=== PATIENT | female | born 1970 | race Caucasian/White ===

== ENCOUNTER → 2021-10-27 | Outpatient (CLI) | payer BC ==
--- NOTE | 2021-10-27 11:24 | Diagnostic Imaging Report ---
INDICATION: Routine screening. COMPARISON: No prior mammograms are available for comparison. This is a baseline study. TECHNIQUE: 2D and 3D bilateral screening mammography was performed with CAD. FINDINGS: Both breasts are heterogeneously dense, limiting the sensitivity of mammography. There is a circumscribed density in the upper and slightly outer aspect of the right breast at mid depth. Additional views of this are recommended. There is a cluster of microcalcifications in the inner aspect of the right breast at mid depth. Additional views are recommended. There are also some calcifications in the posterior slightly lower inner left breast for which additional views are recommended. An intraparenchymal lymph node in the upper posterior left breast is noted. The axillae are unremarkable. IMPRESSION: 1. Bilateral breast calcifications. Additional views are recommended. 2. Circumscribed nodule in the upper outer right breast. Additional views and ultrasound are recommended. ACR BI-RADS Category 0: Incomplete. (Needs additional imaging evaluation). Result letter will be mailed to the patient. Note: At least 10% of breast cancer is not imaged by mammography. Dictated by: Dictated on workstation # [id number]
== END ==
LOC: RAD 07:57
PROVIDERS: ATTEND Nurse Practitioner Family
DX: Z12.31 Encounter for screening mammogram for malignant neoplasm of breast (principal); N63.11 Unspecified lump in the right breast, upper outer quadrant; R92.1 Mammographic calcification found on diagnostic imaging of breast
CPT/HCPCS: 77063; 77067

== ENCOUNTER → 2021-11-03 | Outpatient (CLI) | payer BC ==
--- NOTE | 2021-11-03 09:58 | Diagnostic Imaging Report ---
INDICATION: Right breast density as well as bilateral breast calcifications. Patient presents for additional views. COMPARISON: Correlation is made with the screening mammogram from 10/27/2021. TECHNIQUE: 2D and 3D bilateral diagnostic mammography was performed with CAD. This included spot compression views of the upper outer right breast as well as CC and ML magnification views of the bilateral breast calcifications. Conventional 90 degree lateral views were obtained bilaterally as well. FINDINGS: The additional views show a persistent somewhat circumscribed density in the upper outer right breast approximately 4 cm from the nipple. This may represent a cyst. Further evaluation with ultrasound is recommended. Magnifications views of the right breast do show a cluster of indeterminate microcalcifications in the medial right breast at mid depth. These are indeterminate and tissue sampling would be recommended. No associated soft tissue mass is seen. Magnification views of the left breast calcifications demonstrate the calcifications to be loosely clustered. These are primarily punctate without evidence of pleomorphism. These appear to be benign. IMPRESSION: 1. Circumscribed density in the upper outer right breast at mid depth. Further evaluation with ultrasound is recommended and will be performed today. 2. Benign appearing left breast calcifications. 3. Clustered indeterminate microcalcifications in the inner right breast. Tissue sampling is recommended. These would be amenable to a stereotactic biopsy approach. ACR BI-RADS Category 0: Incomplete. (Needs additional imaging evaluation). Result letter will be mailed to the patient. Note: At least 10% of breast cancer is not imaged by mammography. Dictated by: Dictated on workstation # [id number]
--- NOTE | 2021-11-03 11:43 | Diagnostic Imaging Report ---
INDICATION: Right breast density. COMPARISON: Correlation is made with the diagnostic mammogram from earlier this same day. TECHNIQUE: Sonographic interrogation of the upper outer right breast was performed. FINDINGS: There is a fairly well-circumscribed macrolobulated solid mass at the 10 o'clock location of the right breast 2-3 cm from the nipple measuring 1.9 x 1.0 x 1.8 cm. No internal vascularity is present. There appears to be some mild posterior acoustic enhancement. The features are most suggestive of a fibroadenoma. IMPRESSION: 1. Cluster of microcalcifications noted on diagnostic and screening mammography in the right breast. Tissue sampling of the calcifications is recommended. These would be amenable to a stereotactic biopsy approach. 2. Macrolobulated solid nodule at the 10 o'clock location of the right breast with features most suggestive of a fibroadenoma. A followup right breast ultrasound in 6 months is recommended to show continued stability. ACR BI-RADS Category 4: Suspicious abnormality. Dictated by: Dictated on workstation # [id number]
== END ==
LOC: RAD 09:01
PROVIDERS: ATTEND Nurse Practitioner Family
DX: N63.11 Unspecified lump in the right breast, upper outer quadrant (principal); R92.0 Mammographic microcalcification found on diagnostic imaging of breast
CPT/HCPCS: 76642; 77066; G0279; 77062

== ENCOUNTER → 2021-11-12 | Outpatient (CLI) | payer BC ==
[~2021-11-12] VITALS: Ht 165.1 cm; Wt 81.8 kg
[~2021-11-12] MED LIST: LIDOCAINE 1% INJ 20 ML VIAL INJ ONE
--- NOTE | 2021-11-12 11:23 | Diagnostic Imaging Report ---
INDICATION: Right breast calcifications. Patient presents for serotactic biopsy. Patient was brought to the stereotactic suite, placed in a chair in a sitting upright position. Right breast was positioned mediolateral. Stereotactic and tomographic imaging of the right breast was performed in order to target the cluster of microcalcifications in the upper inner right breast. Calcifications were targeted. The skin of the medial right breast was prepped and draped in usual sterile fashion. Small amount of 1% lidocaine was utilized for local anesthesia. 8 gauge vacuum-assisted needle was advanced from a mediolateral approach and placed per tomographic coordinates. All images were viewed on a dedicated workstation. A total of 4 core biopsies were obtained with the vacuum-assisted device. Specimen radiograph was obtained demonstrating majority of the cluster located within sample labeled #1. There are several calcifications located in sample #2 as well. A marker clip was then deployed at the biopsy site. The needle was removed and hemostasis was obtained using manual compression. The patient tolerated the procedure well. Postprocedure 2-D CC and ML mammogram was obtained demonstrating a marker clip at the biopsy site. IMPRESSION: Successful stereotactic biopsy of right breast cluster microcalcifications utilizing a vacuum-assisted device. Pathology results are currently pending. Dictated by: Dictated on workstation # [id number]
== END ==
LOC: RAD 10:11
PROVIDERS: ATTEND Nurse Practitioner Family
DX: R92.0 Mammographic microcalcification found on diagnostic imaging of breast (principal)
CPT/HCPCS: 19081; A4648